=== PATIENT | male | born 1970 | race Caucasian/White ===

== ENCOUNTER 2022-02-11 07:03 | Emergency (ER) | payer OTHER ==
[~2022-02-11] VITALS: Ht 177.8 cm; Wt 74.8 kg
== END 2022-02-11 09:18 | disposition home or self-care (01) ==
LOC: ER 07:03
DX: S51.811A Laceration without foreign body of right forearm, initial encounter (principal); W26.0XXA Contact with knife, initial encounter; Z88.0 Allergy status to penicillin
CPT/HCPCS: 12002; 99282